=== PATIENT | female | born 1980 | race Caucasian/White ===

== ENCOUNTER 2024-09-14 08:55 | Emergency (ER) | payer BC, SELFPAY ==
[2024-09-14 08:57] VITALS: BP 128/86
--- NOTE | 2024-09-14 10:51 | ED.GENMED ---
History of Present Illness
General
Chief Complaint: Fever
Source: patient
Time Seen by Provider: 09/14/24 10:37
History of Present Illness
History of Present Illness:
44yoF with a history of asthma, prior traumatic pneumothorax, and depression presenting for evaluation of flu-like symptoms. She initially started with a headache 4 days ago. She then started with body aches, fevers, and malaise 3 days ago. Tmax was
in the 100s but she has been taking Tylenol and ibuprofen frequently. She also endorses shortness of breath. She currently rates her headache as an 8.5/10 in severity. She went to an IV clinic yesterday and received some fluids. She was told that
her heart rate was elevated and her pulse ox was low at that time. She called her PCP today who told her to go to the ED for evaluation. Patient returned from a trip to [place] 2 days ago. She denies any sick contacts. No vomiting, diarrhea,
abdominal pain, dysuria, rashes, neck stiffness.
Past History
Past History
ED Past Medical History: Other (18 week , reactive airway disease.)
ED Past Surgical History: Other (Noncontributory)
Social History
Tobacco: Non-smoker
Alcohol: None
Drug: None
Personal:
Living: with family
Employment: Employed
Family History
Family History: Other (Noncontributory)
Phy Exam
General Physical Exam
General Presentation: well appearing and no apparent distress
General age: appears stated age
General Skin: warm and dry
General Habitus: normal
ENT Exam
ENT Exam: TM's normal, pharynx normal, neck supple and normocephalic
Additional ENT: Full ROM cervical spine without meningismus
Eye Exam
Eye Exam: conjunctiva normal
Cardiovascular Exam
Cardiovascular Exam: regular rate/rhythm and no murmur
Pulmonary Exam
Pulmonary Exam: lungs clear, no respiratory distress, no rales, no crackles and no rhonchi
Neurological Exam
Neurological Exam: alert
Rudolph Coma Scale
Eye Opening: Spontaneous
Verbal Response: Oriented
Motor Response: Obeys Commands
GCS Total Score: 15
Skin Exam
Skin Exam: normal color and warm/dry
Psychiatric Exam
Psychiatric Exam: normal mood/affect
Course
Orders/Labs/Results
Orders:
Orders
09/14/24 09:03
Test Result ONCE
09/14/24 10:50
Electrocardiogram (*1) Urgent
Reason for Study: Shortness of Breath
EKG- Treatment ONCE
0.9% Sodium Chloride 1000 ml [Nss] 1,000 ml IV BOLUS
Acetaminophen [Tylenol] 1,000 mg PO NOW STA
Diphenhydramine [Benadryl] 25 mg IV NOW STA
Metoclopramide [Reglan] 10 mg IV NOW STA
CR Chest - 2 Views Urgent
Comment:
Reason For Exam: SOB
09/14/24 11:03
COVID-19 Antigen Urgent
Source: Nasal Swab
Complete Blood Count/With Diff Urgent
Comprehensive Metabolic Panel Urgent
HCG, Serum Qualitative Screen Urgent
Troponin I Urgent
Influenza A+B Rapid Molecular Urgent
[place] Source: Nasal Swab
Specimen Description:
09/14/24 12:04
Add On - Microbiology Urgent
Tests Added?: Lyme
09/14/24 12:09
Lyme Progressive Urgent
Monotest Urgent
09/14/24 13:04
CT Head W/o Iv Contrast Urgent
Comment:
Reason For Exam: Acute headache
Ketorolac [Toradol] 15 mg IV NOW STA
Magnesium Sulfate 2 Gram/50 ml [Magnesium Sulfate] 2 gram in 50 ml IV NOW
Abnormal Lab Results
09/14/24
11:03
WBC 3.2 L 10^3/uL
(4.8-10.8)
RBC 4.11 L 10^6/uL
(4.20-5.40)
MCH 32.6 H pg
(27.0-31.0)
Plt Count 108 L 10^3/uL
(130-400)
MPV 10.5 H fL
(7.4-10.4)
Absolute Neuts (auto) 1.2 L 10^3/uL
(1.4-6.5)
Immature Gran % 0.6 H %
(0-0.5)
Neutrophils % 35.9 L %
(42.2-75.2)
Lymphocytes % 54.0 H %
(20.5-51.1)
AST 72 H U/L
(14-36)
ALT 38 H U/L
(0-35)
09/14/24 11:03
09/14/24 11:03
Vital Signs
Initial and Last Documented VS:
Initial Vital Signs
Temp Pulse Resp BP Pulse Ox
98.5 F 95 16 128/86 100
09/14/24 08:57 09/14/24 08:57 09/14/24 08:57 09/14/24 08:57 09/14/24 08:57
Last Documented Vital Signs
Temp Pulse Resp BP Pulse Ox
98.5 F 80 18 102/78 98
09/14/24 08:57 09/14/24 14:50 09/14/24 14:50 09/14/24 14:50 09/14/24 14:50
MDM/Problems Addressed
Differential Diagnosis Includes:
44yoF here with a headache and flu-like symptoms x 4 days. HR reportedly elevated and pulse ox low at an IV clinic yesterday. She is afebrile and hemodynamically stable. She is non-toxic appearing. Exam is reassuring and no meningismus noted.
Differential diagnosis includes but is not limited to: viral illness, pneumonia, dehydration, doubt meningitis
Initial ED plan: Check cardiac labs, EKG, COVID/flu swab, and CXR. IV Reglan/Benadryl, Tylenol, and fluid bolus ordered for symptoms.
*EKG
Interpreted by ED Provider?: Yes
EKG Intrepretation Date: 09/14/24
Heart Rate: 87
Rate: normal
Rhythm: sinus
[place]: normal axis
Interval: normal interval
QRS Pattern: normal QRS
Ischemia: T-wave inversion (anterolateral leads)
*Critical Care Note
Total Time (30-74mins, 75-104mins- exclusive of procedures): Not Applicable
Update Note
Update Note:
COVID/flu testing negative. Labs reveal a mild leukopenia with lymphocyte predominance. Mild thrombocytopenia and mild transaminitis also noted. CXR is clear. [place] test added which is negative. Patient with minimal improvement of headache and CT
head added. CT head is fortunately negative for acute findings. IV Toradol and magnesium subsequently ordered with improvement. Headache is now a 6/10 in severity. Suspect viral illness given lab findings and symptoms. Also consider tick borne
illness and Lyme testing added. No indication for hospitalization. Supportive care discussed. Advised close f/u with PCP within 48 hours. ED return precautions discussed. She was discharged in stable condition.
ED Attending Note
-
Portions of this chart may have been created with voice recognition software.� Occasional wrong word or��sound alike� substitutions may have occurred due to the inherent limitations of voice recognition software.
Discharge Plan
Departure
Patient Disposition: Home (Routine Discharge)
Date of Disposition: 09/14/24
Time of Disposition: 15:25
Patient with high blood pressure during this ER visit?: No
Discharge Problem:
Flu-like symptoms, Acute nonintractable headache
Instructions: Viral Syndrome (DC)
Prescriptions:
No Action
cetirizine 10 MG tablet
1 tab PO DAILY
B Complex 100 30 ML solution
30 ml DAILY
sertraline [Zoloft] 100 mg Tablet
200 mg PO DAILY
acetaminophen [Pain Relief ES (acetaminophen)] 500 mg Tablet
1,000 mg PO Q6HPRN PRN (Reason: pain) Qty: 0 0RF
ibuprofen 400 mg Tablet
400 mg PO Q6HPRN PRN (Reason: Pain) Qty: 0 0RF
Referrals:
Zahraa Rocha MD [Family Provider] -
Activity Restrictions/Additional Instructions:
Drink plenty of fluids and rest. Take Tylenol and ibuprofen as needed for pain/fevers.
Please call your family doctor today to schedule a follow-up appointment within the next 48 hours. Return to the ER with any new or worsening symptoms.
Interventions
Interventions:
*Risk Screen - Suicide Last Done: 09/14/24 08:57
*General Assessment Last Done: 09/14/24 11:19
*Neglect/Abuse Screening Last Done: 09/14/24 09:00
*Nursing Disposition Last Done: 09/14/24 15:54
ED- Neurological Assessment Last Done: 09/14/24 11:19
ED-Skin Assessment Last Done: 09/14/24 11:19
Discharge Date and Time
Discharge Date/Time: 09/14/24 15:54
Print Language: DIVEHI
[2024-09-14] MEDS: NSS 1000 IV (11:03)
[2024-09-14] MEDS: BENADRYL 25 MG IV (11:04)
[2024-09-14] MEDS: REGLAN 10 MG IV (11:04)
[2024-09-14] MEDS: TYLENOL 1000 MG PO (11:04)
[2024-09-14 11:27] LABS: HCG, Serum Qualitative Screen Negative
[2024-09-14 11:29] LABS: COVID-19 Antigen Negative (Negative)
[2024-09-14 11:35] LABS: Hematocrit 39.6 % (37.0-47.0); Hemoglobin 13.4 g/dL (12.0-16.0); Mean Corp Hgb Conc. 33.8 g/dL (33.0-37.0); Mean Corpuscular Hgb 32.6 pg (27.0-31.0); Mean Corpuscular Volume 96.4 fL (81.0-99.0); Mean Platelet Volume 10.5 fL (7.4-10.4); Platelet Count 108 10^3/uL (130-400); Red Blood Cell Count 4.11 10^6/uL (4.20-5.40); Red Cell Dist. Width 13.7 % (11.5-14.5); White Blood Cell Count 3.2 10^3/uL (4.8-10.8)
[2024-09-14 11:36] LABS: ALT (SGPT) 38 U/L (0-35); AST (SGOT) 72 U/L (14-36); Albumin 3.8 g/dl (3.5-5.0); Alkaline Phosphatase 63 U/L (38-126); Blood Urea Nitrogen 8 mg/dl (7-17); Calcium 8.5 mg/dl (8.4-10.2); Carbon Dioxide 30 mmol/L (22-30); Chloride 101 mmol/L (98-107); Glucose 85 mg/dl (70-99); Potassium 3.8 mmol/L (3.5-5.1); Sodium 138 mmol/L (135-145); Total Bilirubin 0.3 mg/dl (0.2-1.3); Total Protein 6.5 g/dl (6.3-8.2); eGFR > 60.00
[2024-09-14 11:44] LABS: Troponin I < 0.012 ng/ml
[2024-09-14 12:45] LABS: % Basophils 0.9 % (0-2); % Eosinophils 1.2 % (0-6); % Immature Granulocytes 0.6 % (0-0.5); % Monocytes 7.4 % (1.7-9.3); % Neutrophils 35.9 % (42.2-75.2); Absolute Lymphocytes 1.8 10^3/uL (1.2-3.4); Absolute Monocytes 0.2 10^3/uL (0.1-0.6); Absolute Neutrophils 1.2 10^3/uL (1.4-6.5); Nucleated Red Blood Cells % 0 %
[2024-09-14 13:03] LABS: Monotest Negative (Negative)
[2024-09-14] MEDS: MAGNESIUM SULFATE 50 IV (13:15)
[2024-09-14] MEDS: TORADOL 15 MG IV (13:15)
[2024-09-14 14:50] VITALS: BP 102/78
[2024-09-15 16:33] LABS: Lyme Antibody Screen, EIA Negative (Negative)
== END 2024-09-14 15:54 | disposition home or self-care (01) ==
LOC: EMR 08:55
PROVIDERS: Physician Assistant; EMERGENCY PHYSICIAN Emergency Medicine; FAMILY PHYSICIAN Family Medicine
DX: R51.9 Headache, unspecified (principal); R50.9 Fever, unspecified; R53.81 Other malaise; R06.02 Shortness of breath; Z11.52 Encounter for screening for COVID-19
CPT/HCPCS: 99285; 96365; 96375 ×3; 96361; 70450; 71046; 80053; 84484; 84703; 85025; 86308; 86618; 87502; 87811; 93005

== ENCOUNTER 2024-09-19 09:20 | Emergency (ER) | payer BC, SELFPAY ==
[2024-09-19 09:24] VITALS: BP 108/70
--- NOTE | 2024-09-19 10:19 | ED.GENMED ---
History of Present Illness
General
Chief Complaint: Abnormal Lab Value
Time Seen by Provider: 09/19/24 10:19
History of Present Illness
History of Present Illness:
TIME OF INITIAL ENCOUNTER: 10:20 AM
HPI: The patient had been having headaches recently and was seen in the emergency department 4 days ago and at that time had a negative CAT scan of the brain. The following day, she was having facial swelling and was placed on steroids by PCP.
Outpatient blood work showed a normal sed rate but an elevated C-reactive protein to 61.5. She has been intermittently having fevers. She states that her weight has been up 10 pounds. The swelling in her face is somewhat improved currently. She
had a temperature last night of 101.5 �F. She had been taking Fioricet related to the headaches.
EXAM:
GENERAL: Well appearing in no distress
HEENT: Moist oral mucosa, mild periorbital edema/mild facial puffiness
CARDIOVASCULAR: No murmurs, borderline tachycardic heart rate, regular rhythm, No chest wall tenderness
PULMONARY: No respiratory distress, breath sounds are clear and equal
ABDOMEN: Soft but mild diffuse abdominal distention noted without any significant tenderness
NEUROLOGIC: Excellent strength all extremities, no coordination deficits, excellent chin to chest with no meningeal signs
PSYCHIATRIC: Appropriate mental status, normal insight and judgement
EXTREMITIES: Nontender, no edema, moves all extremities equally
SKIN: No rash, no lesions
NUMBER AND COMPLEXITY OF PROBLEMS ADDRESSED AT THE ENCOUNTER
� Chronic conditions affecting care: Has had traumatic pneumothorax in the past, history of Grovers disease
� Acute Exacerbation and/or Progression of Chronic Illness: this is an acute problem
� Differential Diagnosis includes: Viral syndrome, tickborne illness, abdominal pathology/infection, bacteremia
AMOUNT AND/OR COMPLEXITY OF DATA TO BE REVIEWED AND ANALYZED
� I performed an independent evaluation of and my interpretation is:
EKG:sinus 78, inferior ST abnormality similar to 09/14/2024, on 09/14/2024, there was also T wave abnormality V3 through V5 which is not present on today's EKG
CT: CT imaging shows minimal bilateral pleural effusions along with 1.2 cm hepatic cyst, otherwise there is no stranding in the abdomen
X-rays:
Laboratory Studies: White count 8.6, hemoglobin 12.6, lactic 1.9, CRP 29 (decreased compared to last week), hCG negative, EDGAR screening is pending
Other: Of note, the patient had troponin that was negative 5 days ago
� Review of other/old records: I reviewed records. The patient was here 5 days ago, white count was 3.2 with lymphocyte predominance; minimal transaminase elevation, troponin hCG negative. The patient had a CAT scan of the
brain as well as chest x-ray that day which were unremarkable.
� Clinical information was obtained by an independent historian: None needed
� Prescriptions/Medications Considered but not given:
� Further testing considered but not performed:
RISK OF COMPLICATIONS AND/OR MORBIDITY OR MORTALITY OF PATIENT MANAGEMENT
� Social determinants of health affecting care:
� Discussion with other providers: I reviewed the call in note from Dr. Izaguirre's office. She reportedly had been having shortness of breath, tachycardia, neck pain, fevers and then also developed facial swelling. She had
been on prednisone but still has temperatures to 101. She was also concerned of a distended abdomen. Her C-reactive protein 61.5 as an outpatient but sed rate was normal at 9. Initial Lyme testing negative.
� Escalation of care including admission/observation vs risk of discharge considered:
ANY OTHER UPDATES:
At around 2:20 PM: I discussed case with on-call ID, Dr. Acharya. She recommends adding on ANCA, TSH, complement, and recommend she also follows up with ophthalmology and we can try an empiric course of doxycycline.
At 2:45 PM, I also discussed case with [facility] cardiology, Dr. Diaz. He is arranging close outpatient follow-up as well�He states their office will call her for follow-up. I also sent the messages from ID to the primary care physician.
Given the patient's concerns of edema, will give a low-dose short course of furosemide while she still has ongoing outpatient follow-up.
Past History
Past History
ED Past Medical History: Other (18 week , reactive airway disease.)
ED Past Surgical History: Other (Noncontributory)
Social History
Tobacco: Non-smoker
Alcohol: None
Drug: None
Personal:
Living: with family
Employment: Employed
Family History
Family History: Other (Noncontributory)
Phy Exam
Physical Exam
Physical Exam:
See HPI
Course
Orders/Labs/Results
Orders:
Orders
09/19/24 10:37
Iohexol [Omnipaque] See Protocol PO NOW STA
Test Result ONCE
09/19/24 10:38
CT Abd/pel W Iv And Oral Contr Urgent
Comment:
Reason For Exam: abd distension
09/19/24 10:59
EDGAR, IgG Reflex to HEp-2 [S] Urgent
CRP [C-Reactive Protein] Urgent
Complete Blood Count/With Diff Urgent
Comprehensive Metabolic Panel Urgent
HCG, Serum Qualitative Screen Urgent
Lactic Acid Q4H
Comment: CANCEL 2nd LACTIC ACID IF 1st LACTIC ACID IS LESS THAN 2
Manual Differential Urgent
NT-proBNP Urgent
TSH Reflex To Free T4 Urgent
Comment: TSH REF;ROXANNE ADDED ON BY FLOOR 2:16PM 12;;24
Blood Culture Q30M
[place] Source: Blood/Venous
Specimen Description:
09/19/24 14:16
Add On- LAB Urgent
Tests Added?: tsh reflex fT4
09/19/24 14:23
ANCA - MPO/PR3 Ab Profile [S] Urgent
Anaplasma phagocytophila IgG/M [S] Urgent
Complement Act., Total (CH50) [S] Urgent
Ehrlichia chaffeensis Ab Panel [S] Urgent
Lactic Acid Q4H
Comment: CANCEL 2nd LACTIC ACID IF 1st LACTIC ACID IS LESS THAN 2
Babesia Smear [Blood Parasites] Urgent
[place] Source: Blood/Venous
Specimen Description:
Blood Culture Q30M
[place] Source: Blood/Venous
Specimen Description:
09/19/24 14:29
Electrocardiogram (*1) Urgent
Reason for Study: Shortness of Breath
EKG- Treatment ONCE
09/19/24 14:37
Doxycycline [Vibramycin] 100 mg PO NOW STA
Abnormal Lab Results
09/19/24
10:59
RBC 3.95 L 10^6/uL
(4.20-5.40)
MCH 31.9 H pg
(27.0-31.0)
MCHC 32.6 L g/dL
(33.0-37.0)
Segmented Neutrophils 30 L %
(42-75)
Lymphocytes (Manual) 53 H %
(20-51)
Monocytes (Manual) 10 H %
(2-9)
Carbon Dioxide 33 H mmol/L
(22-30)
Glucose 115 H mg/dl
(70-99)
AST 89 H U/L
(14-36)
ALT 109 H U/L
(0-35)
C-Reactive Protein 29.40 H mg/L
(0.0-10.00)
09/19/24 10:59
09/19/24 10:59
Vital Signs
Pulse: 76
Initial and Last Documented VS:
Initial Vital Signs
Temp Pulse Resp BP Pulse Ox
36.9 C 99 18 108/70 100
09/19/24 09:24 09/19/24 09:24 09/19/24 09:24 09/19/24 09:24 09/19/24 09:24
Last Documented Vital Signs
Temp Pulse Resp BP Pulse Ox
36.9 C 76 18 120/81 100
09/19/24 09:24 09/19/24 14:07 09/19/24 09:24 09/19/24 15:00 09/19/24 15:00
*Critical Care Note
Total Time (30-74mins, 75-104mins- exclusive of procedures): Not Applicable
ED Attending Note
-
Portions of this chart may have been created with voice recognition software.� Occasional wrong word or��sound alike� substitutions may have occurred due to the inherent limitations of voice recognition software.
Discharge Plan
Departure
Patient Disposition: Home (Routine Discharge)
Date of Disposition: 09/19/24
Time of Disposition: 14:52
Patient with high blood pressure during this ER visit?: Yes
Discharge Problem:
Fever, recurrent
Instructions: Fever, Adult ED, Fever of unknown origin, Chest Pain CBC Follow Up
Prescriptions:
New
doxycycline hyclate 100 mg tablet
100 mg PO BID Qty: 28 0RF
furosemide 20 mg tablet
20 mg PO DAILY Qty: 4 0RF
No Action
cetirizine 10 MG tablet
1 tab PO DAILY
B Complex 100 30 ML solution
30 ml DAILY
sertraline [Zoloft] 100 mg Tablet
200 mg PO DAILY
acetaminophen [Pain Relief ES (acetaminophen)] 500 mg Tablet
1,000 mg PO Q6HPRN PRN (Reason: pain) Qty: 0 0RF
ibuprofen 400 mg Tablet
400 mg PO Q6HPRN PRN (Reason: Pain) Qty: 0 0RF
Referrals:
Melita Donis MD [Active] - Next open appointment
Patrick Diaz MD [Active] - Follow up in 2-3 days
David Quintana MD [Active] - Follow up in 2-3 days
Zahraa Rocha MD [Family Provider] -
Activity Restrictions/Additional Instructions:
The C-reactive protein today is improved now down to 29.4. Lactic acid level is 1.9. Other tickborne illnesses are pending including babesiosis, ehrlichiosis, and anaplasmosis. Your platelet count was somewhat low the other day which can be seen
with tickborne illnesses but today it is improved. Your liver numbers are slightly abnormal. I spoke to one of the infectious disease specialist due to the concerns of ongoing recurrent fevers. In addition to the tickborne testing, she also
recommended additional medical test including EDGAR, ANCA, complement�these are pending. Consider following up with your own supervisor webbing. I have given you the contact information for a local supervisor webbing as well as an machined parts quality inspector. I also
discussed your case with Dr. Diaz (scraper meat). I have given you the contact information for a local supervisor webbing, Dr. Donis. We do not currently have an machined parts quality inspector on-call but the [place] doctor recommends that you follow-up with an
machined parts quality inspector�I am giving you the name of a local machined parts quality inspector, Dr. Quintana.
Interventions
Interventions:
*Risk Screen - Suicide Last Done: 09/19/24 09:24
*General Assessment Last Done: 09/19/24 09:24
*Neglect/Abuse Screening Last Done: 09/19/24 09:24
ED- Fall Risk Assessment Last Done: 09/19/24 11:31
*ED COVID-19 Vaccine History Last Done: 09/19/24 10:50
*Nursing Disposition Last Done: 09/19/24 15:16
[place] Assessment Last Done: 09/19/24 11:31
Discharge Date and Time
Print Language: UKRAINIAN
[2024-09-19] MEDS: OMNIPAQUE 50 ML PO (10:48)
[2024-09-19 10:49] VITALS: BMI 21.1
[2024-09-19 11:19] LABS: Hematocrit 38.6 % (37.0-47.0); Hemoglobin 12.6 g/dL (12.0-16.0); Mean Corp Hgb Conc. 32.6 g/dL (33.0-37.0); Mean Corpuscular Hgb 31.9 pg (27.0-31.0); Mean Corpuscular Volume 97.7 fL (81.0-99.0); Mean Platelet Volume 9.5 fL (7.4-10.4); Platelet Count 201 10^3/uL (130-400); Red Blood Cell Count 3.95 10^6/uL (4.20-5.40); Red Cell Dist. Width 13.7 % (11.5-14.5); White Blood Cell Count 8.6 10^3/uL (4.8-10.8)
[2024-09-19 11:25] LABS: HCG, Serum Qualitative Screen Negative
[2024-09-19 11:29] LABS: Lactic Acid 1.9 mmol/L (0.7-2.0)
[2024-09-19 11:30] LABS: ALT (SGPT) 109 U/L (0-35); AST (SGOT) 89 U/L (14-36); Albumin 3.8 g/dl (3.5-5.0); Alkaline Phosphatase 104 U/L (38-126); Blood Urea Nitrogen 8 mg/dl (7-17); Calcium 8.7 mg/dl (8.4-10.2); Carbon Dioxide 33 mmol/L (22-30); Chloride 101 mmol/L (98-107); Estimated Creatinine Clearance 99 ml/min; Glucose 115 mg/dl (70-99); Potassium 3.5 mmol/L (3.5-5.1); Sodium 139 mmol/L (135-145); Total Bilirubin 0.2 mg/dl (0.2-1.3); Total Protein 6.7 g/dl (6.3-8.2); eGFR > 60.00
[2024-09-19 11:38] LABS: NT-proBNP 924 pg/ml
[2024-09-19 12:00] VITALS: BP 108/78
[2024-09-19 12:51] LABS: Absolute Neutrophils -Man Diff 2.5 10^3/uL (1.4-6.5); Atypical Lymphocytes 6 %; Band Neutrophils 0 % (0-3); Lymphocytes 53 % (20-51); Metamyelocytes 1 % (-); Monocytes 10 % (2-9); Normal RBC Morphology Yes; Platelets Checked Yes; Segmented Neutrophils 30 % (42-75); Total Cells Counted 100
[2024-09-19 14:28] VITALS: BP 121/94
[2024-09-19] MEDS: VIBRAMYCIN 100 MG PO (14:40)
[2024-09-19 15:00] VITALS: BP 120/81
[2024-09-19 15:12] LABS: TSH Reflex To Free T4 0.98 uIU/ml (0.47-4.68)
[2024-09-20 17:23] LABS: ANA, IgG Reflex to HEp-2 None Detected (None Detected)
== END 2024-09-19 15:30 | disposition home or self-care (01) ==
LOC: EMR 09:20
PROVIDERS: EMERGENCY PHYSICIAN Emergency Medicine; FAMILY PHYSICIAN Family Medicine
DX: R50.9 Fever, unspecified (principal); R51.9 Headache, unspecified; R22.0 Localized swelling, mass and lump, head; J45.909 Unspecified asthma, uncomplicated
CPT/HCPCS: 99284; 74177; 80053; 83516; 83605; 83880; 84443; 84703; 85025; 86038; 86140; 86162; 86666; 87015; 87040; 87207; 93005; Q9967